=== PATIENT | female | born 1995 | race Hispanic/Latino ===

== ENCOUNTER 2021-04-17 20:51 | Inpatient (IN) | payer OTHER ==
[2021-04-17] MEDS: Lactated Ringer's 1,000 ML IV SCH (22:12)
[2021-04-17] MEDS ORDERED: hydrALAZINE 20 MG/ML VIAL SLOW IVP PRN (22:18)
[2021-04-17 23:10] LABS: Bilirubin Neg (Negative); Blood, Urine 10 (Negative); Clarity Slightly Cloudy (Clear); Glucose, Urine (Dipstick) Normal (Negative); Ketone, Urine Negative (Negative); Leukocyte Negative (Negative); Nitrite Negative (Negative); Protein, Urine (Dipstick) Negative (Neg-Trace); Specific Gravity, Urine 1.015 (1.002-1.036); Urobilinogen Normal mg/dL (Less than 2)
[2021-04-17 23:18] LABS: Bacteria/HPF 2+ HPF (None Seen); RBC/HPF 0-3 HPF (0-3); WBC/HPF None Seen HPF (0-3)
[2021-04-17 23:20] LABS: Urine Culture Reflex No No
[2021-04-18] MEDS: Lactated Ringer's 1,000 ML IV SCH ×2 (00:29→08:58)
[2021-04-18 00:32] VITALS: BMI 33.0
[2021-04-18] MEDS ORDERED: Ondansetron PF 4 MG/2 ML Vial IVP PRN ×3 (07:14→14:12)
[2021-04-18] MEDS ORDERED: Bicitra 30 ML UDCUP PO PRN (07:14)
[2021-04-18] MEDS ORDERED: Promethazine HCl 25 MG/ML VIAL IM PRN ×2 (07:14→11:07)
[2021-04-18] MEDS ORDERED: Famotidine/PF 20 mg/2ml Vial SLOW IVP PRN (07:14)
[2021-04-18] MEDS ORDERED: hydrALAZINE 20 MG/ML VIAL SLOW IVP PRN ×2 (07:14→14:12)
[2021-04-18] MEDS ORDERED: CEFAZOLIN 2 GM in Premix Bag 1 BAG IVPB SCH (07:15)
[2021-04-18] MEDS ORDERED: Carboprost 250 MCG/ML AMP IM PRN (07:18)
[2021-04-18] MEDS ORDERED: Diphenoxylate HCl/Atropine Tablet PO PRN (07:18)
[2021-04-18] MEDS ORDERED: Methylergonovine 0.2 MG/ML VIAL IM PRN (07:18)
[2021-04-18] MEDS ORDERED: Misoprostol 200 MCG TAB PR PRN (07:18)
[2021-04-18] MEDS ORDERED: NS w/ Oxytocin 30 units 500 ML IV SCH (07:30)
[2021-04-18 08:00] LABS: Hemoglobin 10.5 g/dL (12.0-15.5); Mean Corpuscular HGB CONC 31.3 g/dL (32.0-36.0); Mean Corpuscular Hemoglobin 27.1 pg (27.0-33.0); Mean Corpuscular Volume 86.6 fl (81.6-98.3); Mean Platelet Volume 9.8 fl (7.4-10.4); Platelet Count 315 10x3/uL (150-450); RBC Distribution Width 13.5 % (11.5-14.5); Red Blood Cell (RBC) Count 3.88 10x6/uL (3.90-5.03); White Blood Cell (WBC) Count 7.7 10x3/uL (3.5-10.5)
[2021-04-18 08:37] LABS: HIV (1/2) Antibody/Antigen Non-Reactive (NonReactive); HIV 1/2 INDEX 0.07 S/CO (<1.00); Hep B Surf Ag Non-Reactive S/CO (NonReactive)
[2021-04-18 08:38] LABS: Syphilis Antibody Nonreactive (Nonreactive); Syphilis Antibody Index 0.04 S/CO (<1.00 Non-Reactive)
[2021-04-18] MEDS ORDERED: Ondansetron PF 4 MG/2 ML Vial ONE (08:48)
[2021-04-18] MEDS ORDERED: Phenylephrine 40 MG/NS 250 ML 250 ML ONE (08:51)
[2021-04-18] MEDS ORDERED: PHENYLEPHRINE-NS 100 MCG/ML 10 ML SYRINGE ONE (08:56)
[2021-04-18 09:01] LABS: SARS-CoV-2 NAA Rapid Test Not Detected (NotDetected)
[2021-04-18] MEDS ORDERED: Morphine PF 10 MG/10 ML VIAL ONE (09:29)
[2021-04-18] MEDS ORDERED: diphenhydrAMINE 50 MG/ML VIAL IVP PRN (11:07)
[2021-04-18] MEDS ORDERED: Naloxone HCl 0.4 mg/ml Vial IVP PRN ×2 (11:07)
[2021-04-18] MEDS ORDERED: Fentanyl 100 MCG/2 ML VIAL SLOW IVP PRN (11:07)
[2021-04-18] MEDS ORDERED: Naloxone HCl 0.4 mg/ml Vial IV PRN (11:07)
[2021-04-18] MEDS ORDERED: Meperidine HCl/PF 25 MG/ML VIAL SLOW IVP PRN (11:07)
[2021-04-18] MEDS ORDERED: Promethazine HCl 25 MG SUPP PR PRN (11:07)
[2021-04-18] MEDS ORDERED: Hydrocerin (Eucerin) Cream 120 gm Jar TOP PRN (11:07)
[2021-04-18] MEDS ORDERED: Ondansetron HCl/PF 4 MG/2 ML Vial IVP PRN (11:07)
[2021-04-18] MEDS ORDERED: Communication Order-Pharmacy FS SCH (11:15)
[2021-04-18] MEDS ORDERED: Ketorolac Tromethamine 30 MG/ML VIAL IVP SCH (11:15)
[2021-04-18] MEDS: Ketorolac Tromethamine 30 MG/ML VIAL IVP PRN ×2 (14:08→22:21)
[2021-04-18] MEDS ORDERED: Lanolin Ointment 7 GM TUBE TOP PRN (14:12)
[2021-04-18] MEDS ORDERED: Bisacodyl 10 MG SUPP PR PRN (14:12)
[2021-04-18] MEDS ORDERED: diphenhydrAMINE 25 MG CAP PO PRN (14:12)
[2021-04-18] MEDS ORDERED: Simethicone Chewable 80 MG TAB PO PRN (14:12)
[2021-04-19 04:43] LABS: Mean Corpuscular HGB CONC 30.9 g/dL (32.0-36.0); Mean Corpuscular Hemoglobin 26.5 pg (27.0-33.0); Mean Corpuscular Volume 85.8 fl (81.6-98.3); Platelet Count 262 10x3/uL (150-450); RBC Distribution Width 13.4 % (11.5-14.5); Red Blood Cell (RBC) Count 3.39 10x6/uL (3.90-5.03); White Blood Cell (WBC) Count 7.7 10x3/uL (3.5-10.5)
[2021-04-19] MEDS: HYDROcodone/Acetaminophen 5/325 mg Tablet PO PRN ×3 (06:41→19:47)
[2021-04-19] MEDS ORDERED: Ibuprofen 800 MG TAB PO SCH (06:45)
[2021-04-19] MEDS: Ferrous Sulfate 325 MG TAB PO SCH (09:26)
[2021-04-19] MEDS: Docusate Calcium (SURFAK) 240 MG CAP PO SCH ×3 (09:26→19:47)
[2021-04-19] MEDS: Prenatal Vitamin 1 TAB PO SCH (09:26)
[2021-04-19 20:04] VITALS: BP 112/60; TEMP 99.5
[2021-04-20] MEDS ORDERED: Ibuprofen 800 MG TAB PO SCH ×2 (01:45→09:00)
[2021-04-20] MEDS: HYDROcodone/Acetaminophen 5/325 mg Tablet PO PRN ×2 (07:19→12:16)
[2021-04-20] MEDS: Ferrous Sulfate 325 MG TAB PO SCH ×2 (07:22→08:18)
[2021-04-20] MEDS: Docusate Calcium (SURFAK) 240 MG CAP PO SCH (08:17)
[2021-04-20] MEDS: Prenatal Vitamin 1 TAB PO SCH (08:18)
[2021-04-21] MEDS ORDERED: Boostrix 0.5 ML (Tdap) VIAL IM ONE (14:12)
[2021-04-24] MEDS ORDERED: Ibuprofen 800 MG TAB PO SCH (14:00)
== END 2021-04-20 13:30 | disposition home or self-care (01) | DRG 787 ==
LOC: CSHLD/OP 20:51 → CSHLD 04-18 08:04 → CSHPP 04-18 14:40
PROVIDERS: ADMIT Student in an Organized Health Care Education/Training Program; ATTEND Student in an Organized Health Care Education/Training Program
PROC: 10D00Z1 Extraction of Products of Conception, Low, Open Approach (ICD-10-PCS; principal; 2021-04-18)
DX: O34.211 Maternal care for low transverse scar from previous cesarean delivery (principal); D62 Acute posthemorrhagic anemia; Z20.822 Contact with and (suspected) exposure to COVID-19; Z37.0 Single live birth; Z3A.37 37 weeks gestation of pregnancy; O99.02 Anemia complicating childbirth; K21.9 Gastro-esophageal reflux disease without esophagitis; O99.62 Diseases of the digestive system complicating childbirth; O77.0 Labor and delivery complicated by meconium in amniotic fluid; O76 Abnormality in fetal heart rate and rhythm complicating labor and delivery; E66.9 Obesity, unspecified; O99.214 Obesity complicating childbirth
CPT/HCPCS: 36415; 51702; 76819; 81001; 85027; 86780; 86850; 86900; 86901; 87340; 87389; 99285; J0690; J1885; J2274; J2405; J2590; J7120; U0002

== ENCOUNTER 2021-05-06 21:17 | Emergency (ER) | payer OTHER ==
[2021-05-06] MEDS ORDERED: diphenhydrAMINE 50 MG/ML VIAL ONE (22:40)
[2021-05-06] MEDS ORDERED: Metoclopramide HCl 10 MG/2 ML VIAL ONE (22:41)
[2021-05-06 23:23] LABS: #Basophils 0.1 10x3/uL (0.0-0.2); #Eosinphils 0.5 10x3/uL (0.0-0.5); #Monocytes 0.5 10x3/uL (0.0-1.1); #Neutrophils 3.1 10x3/uL (1.5-8.4); %Basophils 0.6 % (0.0-2.0); %Eosinophils 6.4 % (0.0-6.0); %Lymphocytes 46.3 % (18.0-47.0); %Monocytes 6.4 % (0.0-10.0); Hemoglobin 12.3 g/dL (12.0-15.5); Mean Corpuscular Hemoglobin 26.6 pg (27.0-33.0); Mean Corpuscular Volume 85.7 fl (81.6-98.3); Mean Platelet Volume 10.4 fl (7.4-10.4); Platelet Count 404 10x3/uL (150-450); RBC Distribution Width 13.6 % (11.5-14.5); Red Blood Cell (RBC) Count 4.63 10x6/uL (3.90-5.03); White Blood Cell (WBC) Count 7.8 10x3/uL (3.5-10.5)
[2021-05-06 23:37] LABS: ALT (SGPT) 23 U/L (8-55); AST (SGOT) 23 U/L (5-34); Albumin 3.8 g/dL (3.5-5.0); Alkaline Phosphatase 112 U/L (40-110); Anion Gap 14 mmol/L (10-20); BUN (Urea Nitrogen) 15 mg/dL (7.0-18.7); Bilirubin, Total 0.1 mg/dL (0.2-1.2); Calc. Creatinine Clearance 0 mL/min (70-130); Calcium 8.9 mg/dL (7.8-10.44); Carbon Dioxide 20 mmol/L (22-29); Chloride 109 mmol/L (98-107); Globulin 3.6 g/dL (2.4-3.5); Glucose 97 mg/dL (70-105); Potassium 4.2 mmol/L (3.5-5.1); Protein, Total 7.4 g/dL (6.0-8.3); Sodium 139 mmol/L (136-145)
== END 2021-05-07 01:20 | disposition home or self-care (01) ==
LOC: CSHERS 21:17
DX: E86.0 Dehydration (principal); R51.9 Headache, unspecified; R00.1 Bradycardia, unspecified; R29.700 NIHSS score 0; Z79.899 Other long term (current) drug therapy
CPT/HCPCS: 70450; 71045; 80053; 83880; 84484; 85025; 93005; 96374; 96375; J1200; J2765

== ENCOUNTER 2022-10-07 22:29 | Emergency (ER) | payer OTHER ==
[2022-10-08 02:14] LABS: #Eosinphils 0.2 10x3/uL (0.0-0.5); #Monocytes 0.4 10x3/uL (0.0-1.1); %Basophils 0.5 % (0.0-2.0); %Eosinophils 1.8 % (0.0-6.0); %Lymphocytes 32.5 % (18.0-47.0); %Monocytes 4.7 % (0.0-10.0); %Neutrophils 60.3 % (40.0-75.0); Hemoglobin 13.2 g/dL (12.0-15.5); Mean Corpuscular HGB CONC 32.8 g/dL (32.0-36.0); Mean Corpuscular Hemoglobin 28.9 pg (27.0-33.0); Mean Corpuscular Volume 88.4 fl (81.6-98.3); Mean Platelet Volume 9.5 fl (7.4-10.4); Platelet Count 430 10x3/uL (150-450); RBC Distribution Width 11.9 % (11.5-14.5); Red Blood Cell (RBC) Count 4.56 10x6/uL (3.90-5.03); White Blood Cell (WBC) Count 8.2 10x3/uL (3.5-10.5)
[2022-10-08 02:18] LABS: BHCG - Serum Negative (NEGATIVE); Pregs Control Background? CLEAR/WHITE (CLR/WHITE); Pregs Control Bar Appear? YES (CONTROL BAR)
[2022-10-08 02:25] LABS: ALT (SGPT) 13 U/L (8-55); AST (SGOT) 16 U/L (5-34); Albumin 4.3 g/dL (3.5-5.0); Alkaline Phosphatase 79 U/L (40-110); Anion Gap 13 mmol/L (10-20); BUN (Urea Nitrogen) 16 mg/dL (7.0-18.7); Bilirubin, Total 0.2 mg/dL (0.2-1.2); Calc. Creatinine Clearance 0 mL/min (70-130); Calcium 9.2 mg/dL (7.8-10.44); Carbon Dioxide 23 mmol/L (22-29); Chloride 106 mmol/L (98-107); Estimated GFR 116; Globulin 3.5 g/dL (2.4-3.5); Glucose 98 mg/dL (70-105); Potassium 4.4 mmol/L (3.5-5.1); Protein, Total 7.8 g/dL (6.0-8.3); Sodium 138 mmol/L (136-145)
== END 2022-10-08 02:38 | disposition home or self-care (01) ==
LOC: CSHERS 22:29
DX: R55 Syncope and collapse (principal); R19.7 Diarrhea, unspecified
CPT/HCPCS: 80053; 84703; 85025; 93005

== ENCOUNTER 2024-06-17 12:57 | Emergency (ER) | payer OTHER ==
[2024-06-17] MEDS ORDERED: Ondansetron ODT 4 MG TAB ONE (13:24)
[2024-06-17 13:40] LABS: #Basophils 0.03 10x3/uL (0.0-0.2); #Eosinophils 0.17 10x3/uL (0.0-0.5); #Monocytes 0.38 10x3/uL (0.0-1.1); #Neutrophils 4.55 10x3/uL (1.5-8.4); %Basophils 0.4 % (0.0-2.0); %Eosinophils 2.2 % (0.0-6.0); %Lymphocytes 34.9 % (18.0-47.0); %Monocytes 4.8 % (0.0-10.0); %Neutrophils 57.6 % (40.0-75.0); Hematocrit 39.5 % (34.9-44.5); Hemoglobin 12.9 g/dL (12.0-15.5); Mean Corpuscular HGB CONC 32.7 g/dL (32.0-36.0); Mean Corpuscular Hemoglobin 28.9 pg (27.0-33.0); Mean Corpuscular Volume 88.4 fL (81.6-98.3); Mean Platelet Volume 9.3 fL (7.4-10.4); Platelet Count 376 10x3/uL (150-450); RBC Distribution Width 11.8 % (11.5-14.5); Red Blood Cell (RBC) Count 4.47 10x6/uL (3.90-5.03); White Blood Cell (WBC) Count 7.89 10x3/uL (3.5-10.5)
[2024-06-17 13:48] LABS: BHCG - Serum Negative (NEGATIVE); Pregs Control Background? CLEAR/WHITE (CLR/WHITE); Pregs Control Bar Appear? YES (CONTROL BAR)
[2024-06-17 13:55] LABS: ALT (SGPT) 14 U/L (8-55); AST (SGOT) 15 U/L (5-34); Albumin 3.8 g/dL (3.5-5.0); Alkaline Phosphatase 58 U/L (40-110); Anion Gap 12 mmol/L (10-20); BUN (Urea Nitrogen) 11 mg/dL (7.0-18.7); Bilirubin, Total 0.4 mg/dL (0.2-1.2); Calc. Creatinine Clearance 0 mL/min (70-130); Calcium 9.1 mg/dL (7.8-10.44); Carbon Dioxide 22 mmol/L (22-29); Chloride 108 mmol/L (98-107); Estimated GFR 109; Globulin 3.8 g/dL (2.4-3.5); Glucose 91 mg/dL (70-105); Potassium 3.7 mmol/L (3.5-5.1); Protein, Total 7.6 g/dL (6.0-8.3); Sodium 138 mmol/L (136-145)
== END 2024-06-17 14:41 | disposition home or self-care (01) ==
LOC: CSHERS 12:57
DX: R19.7 Diarrhea, unspecified (principal); I95.1 Orthostatic hypotension; I45.81 Long QT syndrome
CPT/HCPCS: 80053; 84703; 85025; 93005; 99284; Q0162